=== PATIENT | male | born 1975 | race Caucasian/White ===

== ENCOUNTER 2018-04-28 05:55 | Emergency (ER) | payer SELFPAY ==
[~2018-04-28] VITALS: Ht 185.4 cm; Wt 109.8 kg
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
[2018-04-28] MEDS ORDERED: LIDOCAINE 1%/EPI 1:100,000 20 ML VIAL. INJ ONE (06:30)
[2018-04-28 06:45] VITALS: BP 147/94
[2018-04-28] MEDS ORDERED: MUPI15CR TP (06:49)
[2018-04-28] MEDS ORDERED: DOXY100T PO (06:49)
== END 2018-04-28 07:00 | disposition home or self-care (01) ==
LOC: ER 05:55
DX: L03.113 Cellulitis of right upper limb (principal)
CPT/HCPCS: 10060; 99283; J3490